=== PATIENT | male | born 2000 | race Caucasian/White ===

== ENCOUNTER 2020-08-16 23:53 | Emergency (ER) | payer BC, SELFPAY ==
[2020-08-16 23:55] VITALS: BP 135/85; PULSE 79; RESP 15; TEMP 37.6; O2SAT 97; BMI 29.0
--- NOTE | 2020-08-17 00:01 | EKG12_ITS ---
Test Reason : CP Blood Pressure : / mmHG Vent. Rate : 072 BPM Atrial Rate : 072 BPM P-R Int : 142 ms QRS Dur : 084 ms QT Int : 368 ms P-R-T Axes : 056 -10 012 degrees QTc Int : 402 ms Normal sinus rhythm Moderate voltage criteria for LVH, may be normal variant Borderline ECG Confirmed by REDDY BLACKBURN, GAMA ([id number]), development editor MADYSON OLIVEROS ([id number]) on 08/18/2020 8:34:17 AM Referred By: CLAUDIO Confirmed By:GAMA BLAKELY MD
--- NOTE | 2020-08-17 00:01 | RAD_ITS ---
STUDY: X-RAY CHEST REASON FOR EXAM: Male, 20 years old. CP X 2+DAYS TECHNIQUE: Single frontal view of the chest. COMPARISON: None. FINDINGS: The lungs are clear and expanded. There is no demonstrated pleural abnormality. Normal size heart. Normal mediastinum and izaiah. Normal visualized pulmonary arteries. Normal visualized aortic arch and descending thoracic aorta. Normal visualized thoracic spine. Normal visualized ribs, clavicles, and shoulders. There is no demonstrated abnormality of the visualized soft tissue structures of the upper abdomen. RAD/Chest 1 View (Portable) IMPRESSION: Normal x-ray examination of the chest. Electronically Signed: Gilson Lou, at 1:11 EDT Tel , Service support ,
[2020-08-17 00:22] VITALS: BP 136/72; PULSE 69; RESP 21; O2SAT 96
[2020-08-17] MEDS: Aspirin 81 MG TAB.CHEW 324 MG PO (00:26)
--- NOTE | 2020-08-17 00:29 | ED.VIS.GEN ---
History of Present Illness Chief Complaint: Chest Pain Informant: Patient Onset: Days Context: Gradual Onset Timing: Continuous Current Severity: Moderate Maximum Severity: Moderate Narrative: The patient is a 20-year-old male with history of hypercholesterolemia and hypertension but is not on any medications that presents to the emergency department chest pain. Patient states he is been having it for the past 4 days. He describes a substernal ache. It is nonradiating. It is not made worse with exertion. He states it is made worse with movement. He does admit to family history of heart disease, but no documented history of heart disease for himself. He denies any nausea or vomiting. He denies orthopnea or weight gain. He is not had fever or chills. He is not had cough. He denies any history of pulmonary embolus. Prior similar symptoms: No Recent Illness/Hospitalization: No Past Medical History - Allergies and Home Meds Allergies/Adverse Reactions: Allergies No Known Allergies Allergy (Verified 08/16/20 23:54) Primary Care Physician: [facility] Doctor,Out of [NON-STAFF] - Prior records reviewed: Yes Past Medical History: - - Hypertension, hyperlipidemia Surgical History: noncontributory Review of Systems General: Denies: Chills, Fever, Sweats Eyes: Denies: Visual changes - bilaterally, Diplopia ENT: Denies: Rhinorrhea, Sore throat Cardiovascular: Reports: Chest pain. Denies: Palpitations Respiratory: Denies: Dyspnea, Cough, Dyspnea on exertion Gastrointestinal: Denies: Abdominal pain, Nausea, Vomiting, Diarrhea, Melena, Hematochezia Genitourinary: Denies: Dysuria, Hematuria, Frequency Musculoskeletal: Denies: Back pain, Extremity Pain Skin: Denies: Rash, Wounds Neurological: Denies: Headache, Weakness, Numbness Physical Exam Vital Signs/Narrative: Vital Signs Temp Pulse Resp BP Pulse Ox 08/17/20 00:22 69 21 H 136/72 H 96 08/16/20 23:55 99.7 F H 79 15 135/85 H 97 Inital Vital Signs reviewed: Yes General: Well nourished, Well developed, No Acute Distress Head: Normocephalic, Atraumatic Eyes: Perrl, EOMI ENT: Moist mucous membranes, No rhinorrhea Neck: Supple, Nontender Cardiovascular: Regular rate, Regular rhythm, No murmurs Respiratory: No distress, CTA bilaterally, Chest nontender Abdomen: Soft, Nontender, Nondistended, Normal bowel sounds Back: Nontender, Normal Inspection Extremities: Nontender, No edema Skin: Normal color, No rash Neurological: Alert, Oriented x3, Cranial nerves II-XII grossly intact, Normal Strength, Normal Sensation Psychological: Normal affect, Normal Mood Diagnostic/Tx/Re-eval Clinical Impression(s) from Imaging Studies Chest X-Ray 08/17/20 00:01 IMPRESSION: Normal x-ray examination of the chest. Electronically Signed: Gilson oLu, at 1:11 EDT Tel , Service support , Abnormal Lab Results 08/17/20 08/17/20 00:19 00:19 WBC 8.5 RBC 5.55 Hgb 15.5 Hct 46.1 MCV 83.1 MCH 27.9 MCHC 33.6 RDW Std Deviation 38.2 RDW Coeff of Blank 12.8 Plt Count 292 MPV 9.7 Immature Gran % (Auto) 0.400 Neut % (Auto) 58.0 Lymph % (Auto) 29.0 [place] % (Auto) 7.9 Eos % (Auto) 4.3 Baso % (Auto) 0.4 Absolute Neuts (auto) 4.9 Absolute Lymphs (auto) 2.45 Nucleated RBC % 0 Sodium 139 Potassium 4.0 Chloride 108 H Carbon Dioxide 28.0 Anion Gap 3 L BUN 16 Creatinine 0.93 Estim Creat Clear Calc 126.70 Est GFR (MDRD) Af Amer 132 Est GFR (MDRD) Non-Af 109 BUN/Creatinine Ratio 17.1 Glucose 94 Calcium 9.0 Troponin I < 0.015 - Rhythm Strip Rhythm Strip: Sinus Rhythm Rate: 80 Ectopy: None - EKG Initial EKG Interpretation: Sinus Rhythm, No Acute Injury Pattern Prior: No Prior - Medical Decision Making The patient presents with constant substernal chest pain that is nonradiating. It is not made worse with exertion. However, he does have rather significant family history of heart disease and he himself has high cholesterol. EKG was obtained. It was sinus rhythm. There was some increased voltage, but the patient is a thin young male. There is no acute ischemia. Chest x-ray was obtained. There is normal cardiac silhouette. There is no pneumothorax or evidence of volume overload. The patient has had pain for 3 days. His cardiac enzymes are negative. This does not seem cardiac in nature. I did discuss this with the patient. At this point, I do feel that he is safe for outpatient follow-up. He is comfortable with this plan of care. Impression 1. Chest pain ED Disposition - Plan for ED Patient: Instructions: ED Chest Pain NonCardiac Referrals: [facility] Doctor,Out of [NON-STAFF] -
[2020-08-17 00:30] LABS: Absolute Lymphocyte Count 2.45 X10^3/uL (0.83-4.51); Absolute Neutrophil Count 4.9 X10^3/uL (2.0-7.7); Basophil# 0.03 X10^3/uL; Basophil% 0.4 % (0-1); Eosinophil# 0.36 X10^3/uL; Eosinophils% 4.3 % (0-5); Hematocrit 46.1 % (40-54); Hemoglobin 15.5 g/dL (13.0-16.5); Lymphocyte # 2.45 X10^3/ul (4.0); Mean Corp Hgb Conc 33.6 g/dL (32-36); Mean Corpuscular Hgb 27.9 pg (27.0-32.0); Mean Corpuscular Volume 83.1 fL (80-94); Mean Platelet Vol. 9.7 fl (6.2-12.0); Monocyte# 0.67 X10^3/uL; Monocyte% 7.9 % (0-10); NRBC Flagged by Analyzer 0 % (0-5); Neutrophil # 4.91 X10^3/uL (2.7-7.7); Platelet Count 292 K/mm3 (150-450); RBC Distribution Width CV 12.8 % (11.6-14.6); RBC Distribution Width SD 38.2 fl (35.1-43.9); Red Blood Count 5.55 M/mm3 (4.6-6.2); White Blood Count 8.5 K/mm3 (4.4-11.0)
[2020-08-17 00:48] LABS: Anion Gap 3 (5-15); BUN 16 mg/dL (7-18); BUN/Creat Ratio 17.1 RATIO (10-20); Chloride 108 mmol/L (98-107); Creatinine, Serum 0.93 mg/dL (0.70-1.30); EST Glomerular Filtration Rate 109 mL/min (>60); Est Glom Filt Rate - Afr Amer 132 mL/min (>60); Glucose 94 mg/dL (74-106); Sodium Level 139 mmol/L (136-145)
[2020-08-17 01:27] VITALS: BP 144/82
== END 2020-08-17 01:29 | disposition home or self-care (01) ==
PROVIDERS: Emergency Provider Emergency Medicine; PCP Pediatrics
DX: R07.89 Other chest pain (principal); I10 Essential (primary) hypertension; E78.00 Pure hypercholesterolemia, unspecified; Z82.49 Family history of ischemic heart disease and other diseases of the circulatory system
CPT/HCPCS: 71045; 80048; 84484; 85025; 93005; 99285; A4216

== ENCOUNTER → 2021-03-21 13:48 | Outpatient (CLI) | payer BC, SELFPAY | PROVIDERS: PCP Pediatrics; Referring Provider Family Medicine; Visit Provider Family Medicine | DX: Z23 Encounter for immunization (principal) | CPT/HCPCS: 0031A; 91303 ==